=== PATIENT | male | born 1955 | race Caucasian/White ===

== ENCOUNTER → 2017-05-08 | Outpatient (CLI) | payer OTHER ==
[~2017-05-08] VITALS: Ht 180.3 cm; Wt 229.1 kg
[~2017-05-08] MED LIST: ASPI81TA5 PO; ATOR40TA16 PO; CARV3.12 PO; CHLORHEXIDINE GLUCONATE 2 % 1 PACK (2 CLOTHS) TOPICAL PRN; DAILTAB38 PO; DEXTROSE 5% IN WATE 1000ML INJ 1,000 ML IV SCH; DICL50TA3 PO; FURO1TAB60 PO; INSULIN HUMAN REGULAR 1,000 UNITS/10 ML VIAL SQ PRN; LACTATED RINGER'S 1000 ML IV PRN; LIDOCAINE HCL 1% PF 5 ML AMPULE OTHER ONE; LISI20TA3 PO; METF500T PO; METOPROLOL TARTRATE 25 MG TAB PO PRN; POVIDONE IODINE 5% (ANTISEPSIS KIT) 4 APPLICATIONS EACH NARE PRN; PROPOFOL 200 MG/20 ML AMP IV ONE; SODIUM CHLORID 0.9% 500 ML IV PRN; UNIS25TA3 PO
--- NOTE | 2017-05-08 07:13 | PD.HP.UP ---
H&P Update Note The Pre-Admit History and Physical Examination regarding the above named patient was reviewed (including, but not limited to, vital signs, heart, lungs, co-morbid conditions), and upon re-examination it is noted that: the patient's condition has not significantly changed since the last examination. Ankur Jauregui MD May 08, 2017 07:13
[2017-05-08 08:05] VITALS: BP 148/79; PULSE 71; RESP 22; TEMP 97.2; O2SAT 97
--- NOTE | 2017-05-08 15:22 | EKG ---
Date Performed: 05/08/2017 Time Performed: 06:19:32 PTAGE: 61 years EKG: Sinus rhythm INDETERMINATE AXIS RIGHT BUNDLE BRANCH BLOCK ABNORMAL ECG NO PREVIOUS TRACING DOCTOR: Calos Lizarraga Interpretating Date/Time 05/08/2017 15:20:59
--- NOTE | 2017-05-09 09:50 | MR ---
cc: CARLITOS MATUTE M.D. DATE May 08, 2017 PREOPERATIVE DIAGNOSIS Colon cancer screening. PROCEDURE Colonoscopy to cecum. POSTOPERATIVE DIAGNOSES 1. Normal cecum and ileocecal valve. 2. Diverticulosis rectosigmoid left colon. 3. Grade 2 internal-external hemorrhoids. SURGEON Dr. Matute PROCEDURE The patient was placed in the left lateral decubitus position. After adequate anesthesia sedation, rectal exam confirmed the emptiness of the rectal vault. The Olympus colonoscope was then introduced into the rectum and advanced easily under direct vision through the proximal colon until the cecum was identified. The ileocecal valve was normal. There were no vascular abnormalities noted in the cecum. The colonoscope was then gradually withdrawn visualizing the mucosal surface throughout the distal colon. There was diverticulosis in the rectosigmoid. No sign of any acute inflammation, no luminal narrowing and no polyps were seen in the mucosa. The rectum was pretty unremarkable. Internal hemorrhoids were not really prolapsed but without any evidence of thrombosis or ulcerations. The patient tolerated the procedure quite well and was brought to the recovery room in stable condition. MD ASTRID Will/JYOTSNA /10:38 PM /9:43 AM
== END ==
LOC: HEND 05:42
PROVIDERS: ATTEND Colon & Rectal Surgery
DX: Z12.11 Encounter for screening for malignant neoplasm of colon (principal); K64.1 Second degree hemorrhoids; K57.30 Diverticulosis of large intestine without perforation or abscess without bleeding; I10 Essential (primary) hypertension; E11.9 Type 2 diabetes mellitus without complications
CPT/HCPCS: 00810; 45378; 93005; J7120